=== PATIENT | male | born 2000 | race Hispanic/Latino ===

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

== ENCOUNTER 2022-11-02 13:02 | Emergency (ER) | payer OTHER, MEDICAID ==
[~2022-11-02] VITALS: Ht 165.1 cm; Wt 68.0 kg
[2022-11-02 13:06] VITALS: BP 140/83; PULSE 73; RESP 16
[2022-11-02] MEDS ORDERED: CYCLOBENZAPRINE HCL 10 MG TABLET PO ONE (14:30)
[2022-11-02] MEDS ORDERED: LIDOCAINE 5% TOPICAL PATCH TP ONE (14:30)
[2022-11-02] MEDS ORDERED: KETOROLAC 15MG/ML VIAL (15MG/ML) IM ONE (14:30)
[2022-11-02] MEDS ORDERED: KETO10TA2 PO (15:48)
[2022-11-02] MEDS ORDERED: LIDO1ADH82 TP (15:48)
[2022-11-02] MEDS ORDERED: CYCL5TAB PO (15:48)
== END 2022-11-02 16:05 | disposition home or self-care (01) ==
LOC: EDH 13:02
DX: M62.830 Muscle spasm of back (principal); V89.2XXA Person injured in unspecified motor-vehicle accident, traffic, initial encounter; Y93.89 Activity, other specified; Y92.89 Other specified places as the place of occurrence of the external cause; Y99.8 Other external cause status
CPT/HCPCS: 99284; 71045; 96372; 93005; J1885